=== PATIENT | male | born 1990 | race Caucasian/White ===

== ENCOUNTER → 2017-03-21 | Day surgery (SDC) | payer OTHER ==
[~2017-03-21] VITALS: Ht 177.8 cm; Wt 145.1 kg
== END | disposition home or self-care (01) ==
LOC: SDC 08:39
DX: N30.20 Other chronic cystitis without hematuria (principal); N35.9 Urethral stricture, unspecified; N05.9 Unspecified nephritic syndrome with unspecified morphologic changes; K21.9 Gastro-esophageal reflux disease without esophagitis; M19.90 Unspecified osteoarthritis, unspecified site; G89.29 Other chronic pain; F17.210 Nicotine dependence, cigarettes, uncomplicated; Z79.1 Long term (current) use of non-steroidal anti-inflammatories (NSAID); Z79.899 Other long term (current) drug therapy; Z88.6 Allergy status to analgesic agent; Z88.8 Allergy status to other drugs, medicaments and biological substances
CPT/HCPCS: J2704; J2765; Q9967